=== PATIENT | male | born 1975 | race Caucasian/White ===

== ENCOUNTER 2017-07-28 10:35 | Emergency (ER) | payer OTHER ==
[2017-07-28 10:45] VITALS: TEMP 98.4
[2017-07-28] MEDS ORDERED: Naproxen 550 mg Tab PO STA (11:04)
[2017-07-28] MEDS ORDERED: Naproxen 550 mg Tab PO ONE (11:13)
--- NOTE | 2017-07-28 11:26 | C.PDOC ---
History Of Present Illness 42-year-old male, presents to the emergency department with complaints of non- traumatic pain to bilateral knees that started this morning. Patient did not take anything for pain, prompting visit. Denies any numbness/weakness. Time Seen by Provider: 07/28/17 10:45 Chief Complaint (Nursing): Lower Extremity Problem/Injury History Per: Patient History/Exam Limitations: no limitations Onset/Duration Of Symptoms: Hrs Current Symptoms Are (Timing): Still Present Past Medical History Reviewed: Historical Data, Nursing Documentation, Vital Signs Vital Signs: Last Vital Signs Temp 98.4 F 07/28/17 10:44 Pulse 99 H 07/28/17 11:56 Resp 18 07/28/17 11:56 BP 123/78 07/28/17 11:56 Pulse Ox 98 07/28/17 15:12 Family History: States: No Known Family Hx - Social History Hx Alcohol Use: No Hx Substance Use: No - Immunization History Hx Tetanus Toxoid Vaccination: No Hx Influenza Vaccination: No Hx Pneumococcal Vaccination: No Review Of Systems Constitutional: Negative for: Fever, Chills Gastrointestinal: Negative for: Vomiting Musculoskeletal: Positive for: Other (B/L knee pain) Neurological: Negative for: Weakness, Numbness Physical Exam - Physical Exam Appears: Non-toxic, No Acute Distress, Other (comfortable) Skin: Normal Color, Warm, Dry, No Rash Head: Atraumatic, Normacephalic Extremity: Normal ROM, Tenderness, No Calf Tenderness, No Deformity, No Swelling , Other (mild diffuse tenderness to B/L knees, with no swelling, erythema, deformity or calf tenderness) Pulses: Left Dorsalis Pedis: Normal, Right Dorsalis Pedis: Normal Neurological/Psych: Oriented x3, Normal Speech Gait: Steady ED Course And Treatment O2 Sat by Pulse Oximetry: 98 (RA) Pulse Ox Interpretation: Normal Disposition Counseled Patient/Family Regarding: Studies Performed, Diagnosis, Need For Followup, Rx Given - Disposition Referrals: [facility] [Outside] [facility] [place] [Outside] Disposition: HOME/ ROUTINE Disposition Time: 11:45 Condition: STABLE Additional Instructions: FOLLOW UP WITH ORTHOPEDICS WITHIN 1 WEEK USE PAIN MEDICATION NEEDED RETURN TO ER IF SYMPTOMS WORSEN Prescriptions: Naproxen 375 mg PO BID PRN #20 tablet PRN Reason: pain Instructions: Knee Pain (DC) Forms: [employer] (Sinhala) Print Language: [place] - POA Present On Arrival: None - Clinical Impression Clinical Impression: Knee pain, bilateral - Scribe Statement The provider has reviewed the documentation as recorded by the Scribe (Usman Whitehead) All medical record entries made by the Scribe were at my direction and personally dictated by me. I have reviewed the chart and agree that the record accurately reflects my personal performance of the history, physical exam, medical decision making, and the department course for this patient. I have also personally directed, reviewed, and agree with the discharge instructions and disposition.
[2017-07-28 12:00] VITALS: BP 123/78; PULSE 99; RESP 18
--- NOTE | 2017-07-28 12:58 | RAD ---
PROCEDURE: Bilateral Knee Radiographs. HISTORY: b/l knee pain COMPARISON: None. FINDINGS: BONES: Right Knee: Bone alignment and mineralization are normal. There is no acute displaced fracture or bone destruction. Left Knee: Bone alignment and mineralization are normal. There is no acute displaced fracture or bone destruction.. JOINTS: Right Knee: Mild degenerative osteoarthrosis in the medial compartment. Left knee: Mild degenerative osteoarthrosis in the medial compartment. SOFT TISSUES: Right Knee: Normal. Left Knee: Normal. JOINT EFFUSION: Right Knee: None. Left Knee: Small left suprapatellar joint effusion. OTHER FINDINGS: None. IMPRESSION: Mild degenerative osteoarthrosis in the medial compartments. Small left suprapatellar joint effusion.
[2017-07-28 14:49] VITALS: O2SAT 98
== END 2017-07-28 11:57 | disposition home or self-care (01) ==
LOC: C.ER 10:35
DX: M25.561 Pain in right knee (principal); M25.562 Pain in left knee